=== PATIENT | male | born 1960 | race Caucasian/White ===

== ENCOUNTER 2019-07-29 14:20 | Outpatient (CLI) | payer OTHER | END 2019-07-29 23:59 | disposition home or self-care (01) | LOC: CFH 14:20 | PROVIDERS: ATTEND Physician Assistant Medical | DX: Z13.6 Encounter for screening for cardiovascular disorders (principal); I25.10 Atherosclerotic heart disease of native coronary artery without angina pectoris; I10 Essential (primary) hypertension; Z82.49 Family history of ischemic heart disease and other diseases of the circulatory system | CPT/HCPCS: 75571 ==

== ENCOUNTER 2019-08-01 06:45 | Outpatient (CLI) | payer OTHER | END 2019-08-01 23:59 | disposition home or self-care (01) | LOC: CVU 06:45 | PROVIDERS: ATTEND Physician Assistant Medical | DX: I10 Essential (primary) hypertension (principal); R07.9 Chest pain, unspecified; Z82.49 Family history of ischemic heart disease and other diseases of the circulatory system | CPT/HCPCS: 93306; 93356 ==